=== PATIENT | male | born 1960 | race Two or more races ===

== ENCOUNTER 2023-07-26 01:58 | Inpatient (IN) | payer MEDICARE, MEDICAID ==
[~2023-07-26] VITALS: Ht 175.3 cm; Wt 113.4 kg
[2023-07-26] MEDS ORDERED: SODIUM CHLORIDE PO (02:33)
[2023-07-26] MEDS ORDERED: SENN-261 PO (02:33)
[2023-07-26] MEDS ORDERED: BISA10SU11 RC (02:33)
[2023-07-26] MEDS ORDERED: INSU100C SUBCUT ×2 (02:33)
[2023-07-26] MEDS ORDERED: DILT30TA2 PO (02:33)
[2023-07-26] MEDS ORDERED: TAMS-3 PO (02:33)
[2023-07-26] MEDS ORDERED: BENA20TA9 PO (02:33)
[2023-07-26] MEDS ORDERED: INSU100V7 SQ (02:33)
[2023-07-26] MEDS ORDERED: CLOZ25TA PO ×2 (02:33)
[2023-07-26] MEDS ORDERED: POLY17PO4 PO (02:33)
[2023-07-26] MEDS ORDERED: ENOX40DI SQ (02:33)
[2023-07-26] MEDS ORDERED: INSU100C (02:33)
[2023-07-26 03:13] LABS: *AMPHETAMINE, URINE NEGATIVE (NEGATIVE); *BARBITURATE, URINE NEGATIVE (NEGATIVE); *BENZODIAZEPINE, URINE NEGATIVE (NEGATIVE); *CANNABINOID, URINE NEGATIVE (NEGATIVE); *COCCAINE, URINE NEGATIVE (NEGATIVE); *OPIATE, URINE NEGATIVE (NEGATIVE); *PHENCYCLIDINE SCREEN,URINE NEGATIVE (NEGATIVE)
[2023-07-26 03:17] LABS: BASOPHILS # (AUTO) 0.1 K/UL (0.0-0.2); BASOPHILS % (AUTO) 0.3 % (0.0-2.0); EOSINOPHILS # (AUTO) 0.1 K/uL (0.0-0.7); EOSINOPHILS % (AUTO) 0.7 % (0.0-7.0); HEMATOCRIT 40.7 % (36.7-47.1); HEMOGLOBIN 13.6 g/dL (12.5-16.3); LYMPHOCYTES % (AUTO) 11.3 % (20.5-51.5); MEAN CORPUSCULAR HEMOGLOBIN 28.9 uug (23.8-33.4); MEAN CORPUSCULAR HGB CONC 33 g/dL (32.5-36.3); MEAN CORPUSCULAR VOLUME 86.5 fL (73.0-96.2); MONOCYTES # (AUTO) 1.9 K/uL (0.1-1.30); MONOCYTES % (AUTO) 10.3 % (0.0-11.0); NEUTROPHILS % (AUTO) 77.4 % (38.5-71.5); PLATELET COUNT (AUTO) 339 K/uL (152-348); RED CELL DISTRIBUTION WIDTH 13.3 % (12.1-16.2)
[2023-07-26 03:20] LABS: ETHANOL < 3 MG/DL (0-10)
[2023-07-26 03:20] LABS: FENTANYL, URINE NEGATIVE (NEGATIVE)
[2023-07-26 03:21] LABS: ALANINE AMINOTRANSFERASE 21 U/L (16-63); ALBUMIN 2.9 g/dL (3.4-5.0); ALKALINE PHOSPHATASE 75 U/L (50-136); ASPARTATE AMINOTRANSFERASE 7 U/L (15-37); BILIRUBIN,TOTAL 0.5 mg/dL (0.2-1.0); CALCIUM 8.7 mg/dL (8.5-10.1); CARBON DIOXIDE 25 mmol/L (21-32); CHLORIDE 101 mmol/L (98-107); CREATININE 0.7 mg/dL (0.6-1.3); DIFFERENTIAL COMMENT 1; GLUCOSE 164 mg/dL (74-106); POTASSIUM 3.7 mmol/L (3.5-5.1); SODIUM SERUM 134 mmol/L (136-145); UREA NITROGEN, BLOOD 10 mg/dL (7-18)
[2023-07-26 03:21] LABS: *BILIRUBIN,URIN NEGATIVE (NEGATIVE); *BLOOD, URINE 3+ (NEGATIVE); *CLARITY,URINE CLEAR (CLEAR); *COLOR,URINE YELLOW (YELLOW); *KETONES,URINE NEGATIVE (NEGATIVE); *PROTEIN,URINE 2+ (NEGATIVE); LEUKOCYTE ESTERASE ,URINE 1+ (NEGATIVE); NITRITE, URINE NEGATIVE (NEGATIVE); PH,URINE 6.5 (5.0-8.0); UGLUCOSE TRACE (NEGATIVE)
[2023-07-26 03:23] LABS: ACETAMINOPHEN < 10.0 ug/mL (10-30)
[2023-07-26 04:36] LABS: BACTERIA,URINE MANY /HPF (NONE SEEN); RBC,URINE 50-80 /HPF (0-3); SQUAMOUS EPITHELIAL CELL,UR FEW /HPF (NONE SEEN)
[2023-07-26] MEDS ORDERED: CEFTRIAXONE 1 G VIAL IV STA (04:38)
[2023-07-26] MEDS ORDERED: CEFTRIAXONE /D5W 50ML IVPB **ER PYXIS IV ONE (05:11)
[2023-07-26] MEDS ORDERED: ONDANSETRON 4 MG/2 ML VIAL IV PRN (06:00)
[2023-07-26] MEDS ORDERED: REMEDY ESSENTIAL ZINC PASTE 113 GM TP PRN (06:00)
[2023-07-26] MEDS ORDERED: ZOLPIDEM 5 MG TABLET PO PRN (06:00)
[2023-07-26] MEDS ORDERED: BISACODYL 10 MG SUPP.RECT RC PRN (06:00)
[2023-07-26] MEDS ORDERED: ACETAMINOPHEN 325 MG TABLET PO PRN (06:00)
[2023-07-26] MEDS ORDERED: MAGNESIUM HYDROXIDE 30 ML LIQUID UDC PO PRN (06:00)
[2023-07-26] MEDS ORDERED: DEXTROSE 50% 50 ML DISP.SYRIN IV PRN (06:00)
[2023-07-26] MEDS: BLOOD SUGAR DIAGNOSTIC 1 EACH STRIP VI SCH ×4 (07:30→20:50)
[2023-07-26 07:51] LABS: BASOPHILS # (AUTO) 0.1 K/UL (0.0-0.2); BASOPHILS % (AUTO) 0.4 % (0.0-2.0); EOSINOPHILS # (AUTO) 0.1 K/uL (0.0-0.7); EOSINOPHILS % (AUTO) 0.7 % (0.0-7.0); HEMATOCRIT 39.2 % (36.7-47.1); HEMOGLOBIN 13.3 g/dL (12.5-16.3); LYMPHOCYTES # (AUTO) 1.8 K/uL (0.8-4.8); LYMPHOCYTES % (AUTO) 11.2 % (20.5-51.5); MEAN CORPUSCULAR HEMOGLOBIN 28.9 uug (23.8-33.4); MEAN CORPUSCULAR HGB CONC 34 g/dL (32.5-36.3); MEAN CORPUSCULAR VOLUME 85.4 fL (73.0-96.2); MONOCYTES # (AUTO) 1.7 K/uL (0.1-1.30); MONOCYTES % (AUTO) 10.5 % (0.0-11.0); NEUTROPHILS # (AUTO) 12.3 K/uL (1.8-8.9); NEUTROPHILS % (AUTO) 77.2 % (38.5-71.5); PLATELET COUNT (AUTO) 342 K/uL (152-348); RED BLOOD CELL COUNT(AUTO) 4.59 MIL/uL (4.06-5.63); RED CELL DISTRIBUTION WIDTH 13.2 % (12.1-16.2); WHITE BLOOD COUNT (AUTO) 15.9 K/uL (3.6-10.2)
[2023-07-26 08:00] LABS: DIFFERENTIAL COMMENT 1
[2023-07-26] MEDS: TAMSULOSIN HCL 0.4 MG CAP.SR.24H PO SCH (08:19)
[2023-07-26] MEDS: MIRALAX 17 GM POWD.PACK PO SCH (08:19)
[2023-07-26 08:21] LABS: THYROID STIMULATING HORMONE 2.149 mIU/mL (0.358-3.740)
[2023-07-26] MEDS: ENOXAPARIN SODIUM 40 MG/0.4 ML DISP.SYRIN SQ SCH (08:23)
[2023-07-26] MEDS: INSULIN REGULAR, HUMAN 300 UNIT/3 ML VIAL SQ PRN ×4 (08:23→20:51)
[2023-07-26] MEDS: BENAZEPRIL HCL 20 MG TABLET PO SCH ×2 (08:29→17:13)
[2023-07-26 08:30] VITALS: BP 116/77; TEMP 97.8; O2SAT 97
[2023-07-26] MEDS: DILTIAZEM HCL 30 MG TABLET PO SCH ×2 (08:30→17:14)
[2023-07-26] MEDS: CLOZAPINE 25 MG TABLET PO SCH (08:38)
[2023-07-26] MEDS: CLOZAPINE 25 MG TABLET PO ONE ×2 (08:39→10:26)
[2023-07-26 08:57] LABS: ALBUMIN 2.7 g/dL (3.4-5.0); BILIRUBIN,TOTAL 0.4 mg/dL (0.2-1.0); CALCIUM 8.7 mg/dL (8.5-10.1); CREATININE 0.7 mg/dL (0.6-1.3); MAGNESIUM 2.1 mg/dL (1.8-2.4); PHOSPHOROUS 3.6 mg/dL (2.5-4.9); POTASSIUM 4.1 mmol/L (3.5-5.1); TOTAL PROTEIN, SERUM 6.7 g/dL (6.4-8.2)
[2023-07-26 11:25] VITALS: BP 116/50; TEMP 98.1; O2SAT 94
[2023-07-26] MEDS ORDERED: METO100T14 PO (12:48)
[2023-07-26 16:00] VITALS: BP 112/65; TEMP 97.5; O2SAT 98
[2023-07-26 20:00] VITALS: BP 108/65; TEMP 97.9; O2SAT 98
[2023-07-26] MEDS ORDERED: CEFTRIAXONE 1 G in IV DEXTROSE 5% 50 ML IV SCH (21:00)
[2023-07-26] MEDS ORDERED: CLOZAPINE 25 MG TABLET PO SCH (21:00)
[2023-07-26] MEDS ORDERED: SENNOSIDES 1 TABLET PO SCH (21:00)
[2023-07-27 04:00] VITALS: BP 106/64; TEMP 97.4; O2SAT 99
[2023-07-27] MEDS ORDERED: CEFTRIAXONE 1 G in IV DEXTROSE 5% 50 ML IV SCH (05:00)
[2023-07-27] MEDS: BLOOD SUGAR DIAGNOSTIC 1 EACH STRIP VI SCH ×3 (05:40→15:48)
[2023-07-27 06:22] LABS: BASOPHILS # (AUTO) 0.1 K/UL (0.0-0.2); BASOPHILS % (AUTO) 0.6 % (0.0-2.0); EOSINOPHILS # (AUTO) 0.1 K/uL (0.0-0.7); EOSINOPHILS % (AUTO) 1.4 % (0.0-7.0); HEMATOCRIT 39.3 % (36.7-47.1); HEMOGLOBIN 13.5 g/dL (12.5-16.3); LYMPHOCYTES # (AUTO) 1.5 K/uL (0.8-4.8); LYMPHOCYTES % (AUTO) 15.2 % (20.5-51.5); MEAN CORPUSCULAR HEMOGLOBIN 29.4 uug (23.8-33.4); MEAN CORPUSCULAR HGB CONC 35 g/dL (32.5-36.3); MEAN CORPUSCULAR VOLUME 85.2 fL (73.0-96.2); MONOCYTES % (AUTO) 9.7 % (0.0-11.0); NEUTROPHILS # (AUTO) 7.4 K/uL (1.8-8.9); NEUTROPHILS % (AUTO) 73.1 % (38.5-71.5); PLATELET COUNT (AUTO) 354 K/uL (152-348); RED BLOOD CELL COUNT(AUTO) 4.61 MIL/uL (4.06-5.63); RED CELL DISTRIBUTION WIDTH 13.2 % (12.1-16.2); WHITE BLOOD COUNT (AUTO) 10.1 K/uL (3.6-10.2)
[2023-07-27 06:25] LABS: DIFFERENTIAL COMMENT 1
[2023-07-27 07:33] LABS: CALCIUM 8.8 mg/dL (8.5-10.1); CREATININE 0.7 mg/dL (0.6-1.3); MAGNESIUM 2.1 mg/dL (1.8-2.4); PHOSPHOROUS 3.8 mg/dL (2.5-4.9); POTASSIUM 4.4 mmol/L (3.5-5.1)
[2023-07-27] MEDS: INSULIN REGULAR, HUMAN 300 UNIT/3 ML VIAL SQ PRN ×3 (07:49→17:04)
[2023-07-27] MEDS: BENAZEPRIL HCL 20 MG TABLET PO SCH ×2 (08:21→16:02)
[2023-07-27] MEDS: DILTIAZEM HCL 30 MG TABLET PO SCH ×2 (08:22→16:02)
[2023-07-27] MEDS: MIRALAX 17 GM POWD.PACK PO SCH (08:22)
[2023-07-27] MEDS: TAMSULOSIN HCL 0.4 MG CAP.SR.24H PO SCH (08:23)
[2023-07-27] MEDS: ENOXAPARIN SODIUM 40 MG/0.4 ML DISP.SYRIN SQ SCH (08:23)
[2023-07-27] MEDS: CLOZAPINE 25 MG TABLET PO SCH (08:34)
[2023-07-27 10:53] VITALS: BP 110/64; TEMP 97.4; O2SAT 97
[2023-07-27] MEDS ORDERED: CEPH500C2 PO (12:58)
[2023-07-27 15:41] VITALS: BP 109/70; TEMP 97.4; O2SAT 97
[2023-07-27 16:02] VITALS: BP 109/70
[2023-07-27] MEDS ORDERED: CEFTRIAXONE 2 G in IV DEXTROSE 5% 100 ML IV SCH (18:00)
== END 2023-07-27 19:00 | DRG 689 ==
LOC: ER 02:03 → UNDOADMIN 04:32 → GPS 04:32 → MEDSURG3 05:44
PROVIDERS: ADMIT Nurse Practitioner Acute Care; ATTEND Internal Medicine
DX: N39.0 Urinary tract infection, site not specified (principal); G92.8 Other toxic encephalopathy; E44.0 Moderate protein-calorie malnutrition; F20.0 Paranoid schizophrenia; N40.0 Benign prostatic hyperplasia without lower urinary tract symptoms; E11.65 Type 2 diabetes mellitus with hyperglycemia; Z79.4 Long term (current) use of insulin; E66.9 Obesity, unspecified; Z68.36 Body mass index [BMI] 36.0-36.9, adult; Z87.891 Personal history of nicotine dependence; I10 Essential (primary) hypertension; E78.5 Hyperlipidemia, unspecified; Z79.899 Other long term (current) drug therapy
CPT/HCPCS: 36415; 71045; 83605; 83735; 84100; 84443; 85025; 87040; A4663; G0378; G0480; J0696; J1650; J1815

== ENCOUNTER 2023-07-27 19:37 | Inpatient (IN) | payer MEDICARE, OTHER ==
[~2023-07-27] VITALS: Ht 172.7 cm; Wt 98.0 kg
[~2023-07-27 19:37] MED LIST: BENA20TA9 PO; CEPH500C2 PO; CLOZ25TA PO; DILT30TA2 PO; INSU100V7 SQ; TAMS-3 PO
[2023-07-27 20:00] VITALS: BP 128/75; TEMP 98.3; O2SAT 97
[2023-07-27] MEDS ORDERED: MAGNESIUM HYDROXIDE 30 ML LIQUID UDC PO PRN (21:00)
[2023-07-27] MEDS ORDERED: BLOOD SUGAR DIAGNOSTIC 1 EACH STRIP VI ONE (21:00)
[2023-07-27] MEDS ORDERED: MAG HYDROX/AL HYDROX/SIMETH 30 ML LIQUID UDC PO PRN (21:00)
[2023-07-27] MEDS ORDERED: TEMAZEPAM 7.5 MG CAPSULE PO PRN (21:00)
[2023-07-27] MEDS ORDERED: ACETAMINOPHEN 325 MG TABLET PO PRN (21:00)
[2023-07-27] MEDS ORDERED: CLONAZEPAM 0.5 MG TABLET PO PRN (21:00)
[2023-07-27] MEDS: BLOOD SUGAR DIAGNOSTIC 1 EACH STRIP VI SCH (21:34)
[2023-07-28 01:00] VITALS: BP 128/75; TEMP 98.3; O2SAT 97
[2023-07-28] MEDS: BLOOD SUGAR DIAGNOSTIC 1 EACH STRIP VI SCH ×5 (07:09→20:44)
[2023-07-28] MEDS ORDERED: INSULIN REGULAR, HUMAN 300 UNIT/3 ML VIAL SQ SCH (07:30)
[2023-07-28 07:58] VITALS: BP 115/64; TEMP 99.5; O2SAT 98
[2023-07-28] MEDS ORDERED: DEXTROSE 50% 50 ML DISP.SYRIN IV PRN (08:15)
[2023-07-28] MEDS: TAMSULOSIN HCL 0.4 MG CAP.SR.24H PO SCH (10:07)
[2023-07-28] MEDS: CEphaleXIN 500 MG CAPSULE PO SCH ×2 (10:07→17:24)
[2023-07-28] MEDS: BENAZEPRIL HCL 20 MG TABLET PO SCH ×2 (10:08→20:43)
[2023-07-28] MEDS: DILTIAZEM HCL 30 MG TABLET PO SCH ×2 (10:08→20:43)
[2023-07-28] MEDS: CLOZAPINE 25 MG TABLET PO SCH ×2 (11:43→20:44)
[2023-07-28] MEDS: INSULIN REGULAR, HUMAN 300 UNIT/3 ML VIAL SQ PRN ×3 (12:41→20:49)
[2023-07-28 16:25] VITALS: BP 115/64; TEMP 98.1; O2SAT 98
[2023-07-28 20:00] VITALS: BP 123/64; TEMP 98.5; O2SAT 96
[2023-07-28] MEDS ORDERED: INSULIN GLARGINE,HUM 300 UNITS/3 ML CARTRIDGE SQ ONE (21:22)
[2023-07-28] MEDS: INSULIN GLARGINE,HUM 300 UNITS/3 ML CARTRIDGE SQ SCH (21:27)
[2023-07-29] MEDS: BLOOD SUGAR DIAGNOSTIC 1 EACH STRIP VI SCH ×4 (06:21→21:04)
[2023-07-29 07:41] VITALS: BP 101/56; TEMP 98.2; O2SAT 96
[2023-07-29] MEDS: INSULIN REGULAR, HUMAN 300 UNIT/3 ML VIAL SQ PRN ×4 (08:28→21:06)
[2023-07-29] MEDS: CLOZAPINE 25 MG TABLET PO SCH ×2 (08:29→21:01)
[2023-07-29] MEDS: TAMSULOSIN HCL 0.4 MG CAP.SR.24H PO SCH (08:30)
[2023-07-29] MEDS: CEphaleXIN 500 MG CAPSULE PO SCH ×2 (08:31→16:45)
[2023-07-29] MEDS: BENAZEPRIL HCL 20 MG TABLET PO SCH ×2 (08:32→21:01)
[2023-07-29] MEDS: DILTIAZEM HCL 30 MG TABLET PO SCH ×2 (08:32→21:03)
[2023-07-29 15:36] VITALS: BP 120/74; TEMP 98; O2SAT 97
[2023-07-29 20:09] VITALS: BP 135/79; TEMP 98.4; O2SAT 98
[2023-07-29] MEDS: INSULIN GLARGINE,HUM 300 UNITS/3 ML CARTRIDGE SQ SCH (21:04)
[2023-07-30] MEDS: BLOOD SUGAR DIAGNOSTIC 1 EACH STRIP VI SCH ×4 (06:30→21:11)
[2023-07-30 07:48] VITALS: BP 104/56; TEMP 98; O2SAT 98
[2023-07-30] MEDS: CEphaleXIN 500 MG CAPSULE PO SCH ×2 (10:56→18:25)
[2023-07-30] MEDS: DILTIAZEM HCL 30 MG TABLET PO SCH (10:57)
[2023-07-30] MEDS: CLOZAPINE 25 MG TABLET PO SCH ×2 (10:57→21:24)
[2023-07-30] MEDS: BENAZEPRIL HCL 20 MG TABLET PO SCH ×2 (11:05→21:25)
[2023-07-30 15:49] VITALS: BP 132/78; TEMP 98; O2SAT 99
[2023-07-30] MEDS: INSULIN REGULAR, HUMAN 300 UNIT/3 ML VIAL SQ PRN ×2 (18:26→21:13)
[2023-07-30 20:00] VITALS: BP 118/73; TEMP 97.9; O2SAT 96
[2023-07-30] MEDS: INSULIN GLARGINE,HUM 300 UNITS/3 ML CARTRIDGE SQ SCH (21:14)
[2023-07-30] MEDS: DILTIAZEM HCL 90 MG TABLET PO SCH (21:24)
[2023-07-30] MEDS: TAMSULOSIN HCL 0.4 MG CAP.SR.24H PO SCH (21:25)
[2023-07-31 08:01] VITALS: BP 90/51; TEMP 98.2; O2SAT 100
[2023-07-31] MEDS: DILTIAZEM HCL 90 MG TABLET PO SCH ×2 (09:17→21:00)
[2023-07-31] MEDS: CLOZAPINE 25 MG TABLET PO SCH ×2 (09:17→20:29)
[2023-07-31] MEDS: BENAZEPRIL HCL 20 MG TABLET PO SCH ×2 (09:17→21:00)
[2023-07-31] MEDS: CEphaleXIN 500 MG CAPSULE PO SCH ×2 (09:17→18:01)
[2023-07-31] MEDS: BLOOD SUGAR DIAGNOSTIC 1 EACH STRIP VI SCH ×5 (09:18→20:30)
[2023-07-31] MEDS: INSULIN REGULAR, HUMAN 300 UNIT/3 ML VIAL SQ PRN ×3 (09:19→20:33)
[2023-07-31 15:32] VITALS: BP 90/51; TEMP 97.8; O2SAT 96
[2023-07-31 20:00] VITALS: BP 116/70; TEMP 98.7; O2SAT 98
[2023-07-31] MEDS: TAMSULOSIN HCL 0.4 MG CAP.SR.24H PO SCH (20:29)
[2023-07-31] MEDS: INSULIN GLARGINE,HUM 300 UNITS/3 ML CARTRIDGE SQ SCH (20:35)
[2023-08-01] MEDS: BLOOD SUGAR DIAGNOSTIC 1 EACH STRIP VI SCH ×4 (07:37→20:11)
[2023-08-01 08:53] VITALS: BP 108/68; TEMP 98; O2SAT 99
[2023-08-01] MEDS: DILTIAZEM HCL 90 MG TABLET PO SCH ×2 (09:00→20:21)
[2023-08-01] MEDS: BENAZEPRIL HCL 20 MG TABLET PO SCH ×2 (09:00→20:23)
[2023-08-01] MEDS: CEphaleXIN 500 MG CAPSULE PO SCH ×2 (09:34→17:26)
[2023-08-01] MEDS: CLOZAPINE 25 MG TABLET PO SCH (09:35)
[2023-08-01] MEDS: INSULIN REGULAR, HUMAN 300 UNIT/3 ML VIAL SQ PRN ×4 (10:51→20:24)
[2023-08-01 15:27] VITALS: BP 112/56; TEMP 98; O2SAT 98
[2023-08-01] MEDS: PROTEIN SUPPLEMENT (PROSTAT) 30 ML LIQUID PO SCH (17:26)
[2023-08-01 20:00] VITALS: BP 106/59; TEMP 97.4; O2SAT 96
[2023-08-01] MEDS: CLOZAPINE 100 MG TABLET PO SCH (20:20)
[2023-08-01] MEDS: INSULIN GLARGINE,HUM 300 UNITS/3 ML CARTRIDGE SQ SCH (20:20)
[2023-08-01] MEDS: TAMSULOSIN HCL 0.4 MG CAP.SR.24H PO SCH (20:21)
[2023-08-01] MEDS ORDERED: CLOZAPINE 25 MG TABLET PO SCH (21:00)
[2023-08-02] MEDS: BLOOD SUGAR DIAGNOSTIC 1 EACH STRIP VI SCH ×4 (06:24→20:08)
[2023-08-02 07:45] VITALS: BP 68/62; TEMP 97.8; O2SAT 98
[2023-08-02] MEDS: CLOZAPINE 25 MG TABLET PO SCH (10:13)
[2023-08-02] MEDS: PROTEIN SUPPLEMENT (PROSTAT) 30 ML LIQUID PO SCH ×2 (10:15→17:19)
[2023-08-02] MEDS: DILTIAZEM HCL 90 MG TABLET PO SCH ×2 (10:15→20:58)
[2023-08-02] MEDS: BENAZEPRIL HCL 20 MG TABLET PO SCH ×2 (10:15→21:00)
[2023-08-02] MEDS: INSULIN REGULAR, HUMAN 300 UNIT/3 ML VIAL SQ PRN ×3 (13:59→21:05)
[2023-08-02 16:12] VITALS: BP 96/68; TEMP 98; O2SAT 98
[2023-08-02 20:00] VITALS: BP 105/64; TEMP 98.1; O2SAT 98
[2023-08-02] MEDS: TAMSULOSIN HCL 0.4 MG CAP.SR.24H PO SCH (20:59)
[2023-08-02] MEDS: INSULIN GLARGINE,HUM 300 UNITS/3 ML CARTRIDGE SQ SCH (21:00)
[2023-08-02] MEDS: CLOZAPINE 100 MG TABLET PO SCH (21:15)
[2023-08-03] MEDS: BLOOD SUGAR DIAGNOSTIC 1 EACH STRIP VI SCH ×4 (06:26→20:33)
[2023-08-03 07:57] VITALS: BP 116/62; TEMP 98.3; O2SAT 98
[2023-08-03] MEDS: CLOZAPINE 25 MG TABLET PO SCH (09:09)
[2023-08-03] MEDS: PROTEIN SUPPLEMENT (PROSTAT) 30 ML LIQUID PO SCH ×2 (09:10→17:37)
[2023-08-03] MEDS: INSULIN REGULAR, HUMAN 300 UNIT/3 ML VIAL SQ PRN ×3 (09:12→20:50)
[2023-08-03] MEDS: BENAZEPRIL HCL 20 MG TABLET PO SCH ×2 (09:13→20:42)
[2023-08-03] MEDS: DILTIAZEM HCL 90 MG TABLET PO SCH ×2 (09:14→20:41)
[2023-08-03 16:06] VITALS: BP 99/65; TEMP 98; O2SAT 99
[2023-08-03 20:00] VITALS: BP 114/71; TEMP 97.5; O2SAT 95
[2023-08-03] MEDS: TAMSULOSIN HCL 0.4 MG CAP.SR.24H PO SCH (20:41)
[2023-08-03] MEDS: CLOZAPINE 100 MG TABLET PO SCH (20:42)
[2023-08-03] MEDS: INSULIN GLARGINE,HUM 300 UNITS/3 ML CARTRIDGE SQ SCH (20:46)
[2023-08-04] MEDS: BLOOD SUGAR DIAGNOSTIC 1 EACH STRIP VI SCH ×4 (06:58→21:00)
[2023-08-04 07:52] VITALS: BP 99/64; TEMP 98.6; O2SAT 98
[2023-08-04] MEDS: CLOZAPINE 25 MG TABLET PO SCH (08:53)
[2023-08-04] MEDS: DILTIAZEM HCL 90 MG TABLET PO SCH ×2 (08:53→21:47)
[2023-08-04] MEDS: BENAZEPRIL HCL 20 MG TABLET PO SCH ×2 (08:54→21:47)
[2023-08-04] MEDS: PROTEIN SUPPLEMENT (PROSTAT) 30 ML LIQUID PO SCH ×2 (08:54→16:23)
[2023-08-04] MEDS: INSULIN REGULAR, HUMAN 300 UNIT/3 ML VIAL SQ PRN ×4 (08:58→21:49)
[2023-08-04 16:04] VITALS: BP 108/67; TEMP 98.5; O2SAT 98
[2023-08-04 20:00] VITALS: BP 115/68
[2023-08-04] MEDS: CLOZAPINE 100 MG TABLET PO SCH (21:42)
[2023-08-04] MEDS: TAMSULOSIN HCL 0.4 MG CAP.SR.24H PO SCH (21:42)
[2023-08-04] MEDS: INSULIN GLARGINE,HUM 300 UNITS/3 ML CARTRIDGE SQ SCH (21:50)
[2023-08-05] MEDS: BLOOD SUGAR DIAGNOSTIC 1 EACH STRIP VI SCH ×5 (06:34→20:53)
[2023-08-05 07:52] VITALS: BP 98/62; TEMP 98; O2SAT 96
[2023-08-05] MEDS: DILTIAZEM HCL 90 MG TABLET PO SCH ×2 (08:56→20:44)
[2023-08-05] MEDS: BENAZEPRIL HCL 20 MG TABLET PO SCH ×2 (08:58→20:45)
[2023-08-05] MEDS: PROTEIN SUPPLEMENT (PROSTAT) 30 ML LIQUID PO SCH ×2 (08:59→16:30)
[2023-08-05] MEDS ORDERED: CLOZAPINE 25 MG TABLET PO SCH (09:00)
[2023-08-05] MEDS: INSULIN REGULAR, HUMAN 300 UNIT/3 ML VIAL SQ PRN ×3 (12:06→20:56)
[2023-08-05 15:17] VITALS: BP 95/47; TEMP 98; O2SAT 98
[2023-08-05 20:00] VITALS: BP 99/51; TEMP 98.1; O2SAT 98
[2023-08-05] MEDS: CLOZAPINE 100 MG TABLET PO SCH (20:43)
[2023-08-05] MEDS: TAMSULOSIN HCL 0.4 MG CAP.SR.24H PO SCH (20:43)
[2023-08-05] MEDS: INSULIN GLARGINE,HUM 300 UNITS/3 ML CARTRIDGE SQ SCH (20:53)
[2023-08-06 07:58] VITALS: BP 90/48; TEMP 98.4; O2SAT 100
[2023-08-06] MEDS: BLOOD SUGAR DIAGNOSTIC 1 EACH STRIP VI SCH ×4 (08:04→20:31)
[2023-08-06] MEDS: BENAZEPRIL HCL 20 MG TABLET PO SCH ×2 (08:30→20:14)
[2023-08-06] MEDS: PROTEIN SUPPLEMENT (PROSTAT) 30 ML LIQUID PO SCH ×2 (08:30→17:00)
[2023-08-06] MEDS: DILTIAZEM HCL 90 MG TABLET PO SCH ×2 (08:31→20:13)
[2023-08-06] MEDS: INSULIN REGULAR, HUMAN 300 UNIT/3 ML VIAL SQ PRN ×4 (08:36→20:31)
[2023-08-06] MEDS: CLOZAPINE 100 MG TABLET PO SCH ×2 (08:36→20:16)
[2023-08-06] MEDS ORDERED: CLOZAPINE 100 MG TABLET PO SCH (09:00)
[2023-08-06 15:09] VITALS: BP 113/55; TEMP 98.4; O2SAT 98
[2023-08-06 20:14] VITALS: BP 150/89; TEMP 98.5; O2SAT 98
[2023-08-06] MEDS: TAMSULOSIN HCL 0.4 MG CAP.SR.24H PO SCH (20:27)
[2023-08-06] MEDS: INSULIN GLARGINE,HUM 300 UNITS/3 ML CARTRIDGE SQ SCH ×2 (20:32→21:00)
[2023-08-07] MEDS: BLOOD SUGAR DIAGNOSTIC 1 EACH STRIP VI SCH ×4 (06:18→20:27)
[2023-08-07 08:20] VITALS: BP 103/70; TEMP 98; O2SAT 96
[2023-08-07] MEDS: PROTEIN SUPPLEMENT (PROSTAT) 30 ML LIQUID PO SCH ×2 (08:56→17:09)
[2023-08-07] MEDS: CLOZAPINE 100 MG TABLET PO SCH ×2 (08:56→20:57)
[2023-08-07] MEDS: INSULIN REGULAR, HUMAN 300 UNIT/3 ML VIAL SQ PRN ×4 (08:59→21:01)
[2023-08-07] MEDS: DILTIAZEM HCL 90 MG TABLET PO SCH ×2 (09:00→21:03)
[2023-08-07] MEDS: BENAZEPRIL HCL 20 MG TABLET PO SCH ×2 (09:00→21:04)
[2023-08-07 15:36] VITALS: BP 111/64; TEMP 97.8; O2SAT 98
[2023-08-07 20:01] VITALS: BP 114/72; TEMP 98.2; O2SAT 96
[2023-08-07] MEDS: INSULIN GLARGINE,HUM 300 UNITS/3 ML CARTRIDGE SQ SCH (21:02)
[2023-08-07] MEDS: TAMSULOSIN HCL 0.4 MG CAP.SR.24H PO SCH (21:04)
[2023-08-08] MEDS: BLOOD SUGAR DIAGNOSTIC 1 EACH STRIP VI SCH ×2 (06:24→12:05)
[2023-08-08 08:43] VITALS: BP 118/68; TEMP 98; O2SAT 99
[2023-08-08] MEDS: INSULIN REGULAR, HUMAN 300 UNIT/3 ML VIAL SQ PRN ×2 (09:13→12:10)
[2023-08-08] MEDS: BENAZEPRIL HCL 20 MG TABLET PO SCH (09:14)
[2023-08-08] MEDS: PROTEIN SUPPLEMENT (PROSTAT) 30 ML LIQUID PO SCH (09:14)
[2023-08-08 09:15] VITALS: BP 118/68
[2023-08-08] MEDS: DILTIAZEM HCL 90 MG TABLET PO SCH (09:15)
[2023-08-08] MEDS: CLOZAPINE 100 MG TABLET PO SCH (09:30)
== END 2023-08-08 16:20 | disposition home or self-care (01) | DRG 885 ==
LOC: GPS 19:37
PROVIDERS: ADMIT Psychiatry & Neurology Psychiatry; ATTEND Internal Medicine
DX: F20.0 Paranoid schizophrenia (principal); E11.65 Type 2 diabetes mellitus with hyperglycemia; N39.0 Urinary tract infection, site not specified; E44.0 Moderate protein-calorie malnutrition; Z79.899 Other long term (current) drug therapy; N40.0 Benign prostatic hyperplasia without lower urinary tract symptoms; Z87.891 Personal history of nicotine dependence; I10 Essential (primary) hypertension; E66.01 Morbid (severe) obesity due to excess calories; Z68.39 Body mass index [BMI] 39.0-39.9, adult; Z71.3 Dietary counseling and surveillance; Z79.4 Long term (current) use of insulin; B96.4 Proteus (mirabilis) (morganii) as the cause of diseases classified elsewhere
CPT/HCPCS: 36415; J1815